=== PATIENT | female | born 1960 | race African-American/Black ===

== ENCOUNTER 2023-11-03 12:53 | Observation (INO) | payer BC ==
[2023-11-03] MEDS: SODIUM CHLORIDE 1,000 ML IV SCH (14:05)
[2023-11-03 14:10] LABS: BASO % 0.4 % (0-2.0); HEMATOCRIT 32.2 % (32.4-45.2); HEMOGLOBIN 10.6 GM/dL (10.7-15.3); MCH 30.1 pg (25.7-33.7); MCHC 32.8 g/dl (32.0-36.0); MEAN CELL VOLUME 91.8 fl (80-96); MEAN PLT VOLUME 7.5 fl (7.5-11.1); MONO % 8.6 % (3.8-10.2); PLATELET COUNT 297 10^3/uL (134-434); RDW 13.6 % (11.6-15.6); WHITE BLOOD COUNT 7.8 K/mm3 (4.0-10.0)
[2023-11-03 14:17] LABS: INR 1.27 (0.83-1.09); PROTHROMBIN TIME (PATIENT) 14.3 SEC (9.7-13.0)
[2023-11-03 14:19] LABS: ACTIVATED PTT 34.1 SECONDS (25.2-36.5)
[2023-11-03 14:30] LABS: CALCIUM 9.5 mg/dL (8.5-10.1)
[2023-11-03 14:31] LABS: ALBUMIN 3.7 g/dl (3.4-5.0)
[2023-11-03 14:32] LABS: BLOOD UREA NITROGEN 13.8 mg/dL (7-18)
[2023-11-03 14:35] LABS: CREATININE 0.7 mg/dL (0.55-1.3)
[2023-11-03 14:36] LABS: TOT PROT 7.2 g/dl (6.4-8.2)
[2023-11-03 14:37] LABS: BILIRUBIN,TOTAL 0.7 mg/dL (0.2-1)
[2023-11-03 14:39] LABS: EPI CELLS 34 /uL (0-25.1); HYALINE CASTS 0 /uL (0-3.1); URINE APPEARANCE CLEAR; URINE BACTERIA 20 /uL (0-1359); URINE BILIRUBIN NEGATIVE (NEGATIVE); URINE COLOR YELLOW; URINE GLUCOSE (UA) NEGATIVE (NEGATIVE); URINE KETONE NEGATIVE (NEGATIVE); URINE LEUK ESTERASE NEGATIVE (NEGATIVE); URINE NITRITE NEGATIVE (NEGATIVE); URINE PROTEIN NEGATIVE (NEGATIVE); URINE RBC 28 /uL (0-23.9); URINE UROBILINOGEN 0.2 mg/dL (0.2-1.0); URINE WBC 22 /uL (0-25.8)
[2023-11-03] MEDS: HEPARIN NA (PORCINE) 5,000 UNITS/ML 1ML VIAL SQ SCH (21:23)
[2023-11-03] MEDS: CEPHALEXIN MONOHYDRATE 500 MG CAPSULE (UD) PO SCH (21:24)
[2023-11-03] MEDS: ATORVASTATIN CA 10 MG TABLET (FP) PO SCH (21:24)
[2023-11-03 23:00] VITALS: BMI 27.2
[2023-11-04] MEDS: RAMIPRIL 5 MG CAPSULE PO SCH (09:54)
[2023-11-04] MEDS: amLODIPine BESYLATE 5 MG TABLET (FP) PO SCH (09:54)
[2023-11-04] MEDS: PARoxetine HCL 20 MG TABLET PO SCH (09:54)
[2023-11-04 23:44] VITALS: RESP 18
[2023-11-05 14:23] VITALS: BP 129/62; PULSE 98; TEMP 97.7
== END 2023-11-05 15:59 | disposition home or self-care (01) ==
LOC: JER 12:53 → JERBED 15:48 → J4S 18:20
PROVIDERS: ADMIT Internal Medicine
PROC: 3E023GC Introduction of Other Therapeutic Substance into Muscle, Percutaneous Approach (ICD-10-PCS; principal; 2023-11-03)
DX: R25.1 Tremor, unspecified (principal); F41.9 Anxiety disorder, unspecified; R47.02 Dysphasia; R93.0 Abnormal findings on diagnostic imaging of skull and head, not elsewhere classified; E78.5 Hyperlipidemia, unspecified; Z98.890 Other specified postprocedural states; I10 Essential (primary) hypertension; K21.9 Gastro-esophageal reflux disease without esophagitis
CPT/HCPCS: 36415; 70450-TC; 70496-TC; 70498-TC; 70551-TC; 80053; 80061; 81003; 82550; 83036; 84484; 85025; 85610; 85730; 86850; 86900; 86901; 93005; 93010; 97116-GP; 97162-GP; 99285-25; G0378; J1644